=== PATIENT | female | born 1995 | race African-American/Black ===

== ENCOUNTER 2018-08-31 23:04 | Emergency (ER) | payer SELFPAY ==
[~2018-08-31] VITALS: Ht 152.4 cm; Wt 135.8 kg
[~2018-08-31 23:04] MED LIST: ALBUTEROL2.5 MG/3 M IN; AMOXICILLIN500 MG OR; AMOXICILLIN500 MG PO; DOXYCYC MONO100 MG OR; NO HOME MEDS; ULTRAM50 MG PO
[2018-08-31] MEDS ORDERED: PERCOCET 5/325M1 TAB PO (23:28)
[2018-08-31] MEDS ORDERED: AMOXICILLIN500 MG PO (23:28)
[2018-08-31 23:34] VITALS: BP 127/74
== END 2018-08-31 23:34 | disposition home or self-care (01) | DRG 159 ==
LOC: ED 23:04
DX: K04.7 Periapical abscess without sinus (principal); K08.89 Other specified disorders of teeth and supporting structures; S02.5XXA Fracture of tooth (traumatic), initial encounter for closed fracture